=== PATIENT | female | born 1960 | race Asian ===

== ENCOUNTER → 2024-10-16 | Emergency (ER) | payer OTHER ==
[~2024-10-16] VITALS: Ht 170.2 cm; Wt 81.6 kg
[~2024-10-16] MED LIST: MECL-159 PO; PROCHLORPERAZINE EDISYLATE 10 MG/2 ML VIAL ONE
[2024-10-16 20:11] LABS: BASOPHILS % (AUTO) 0.7 % (0.0-2.0); EOSINOPHILS # (AUTO) 0.3 K/uL (0.0-0.7); EOSINOPHILS % (AUTO) 4.2 % (0.0-7.0); HEMATOCRIT 45.9 % (31.2-41.9); LYMPHOCYTES # (AUTO) 1.9 K/uL (0.8-4.8); LYMPHOCYTES % (AUTO) 29.7 % (20.5-51.5); MEAN CORPUSCULAR HEMOGLOBIN 27.6 uug (24.7-32.8); MEAN CORPUSCULAR HGB CONC 33 g/dL (32.3-35.6); MEAN CORPUSCULAR VOLUME 84.7 fL (75.5-95.3); MONOCYTES # (AUTO) 0.4 K/uL (0.1-1.30); MONOCYTES % (AUTO) 6.2 % (0.0-11.0); NEUTROPHILS # (AUTO) 3.8 K/uL (1.8-8.9); NEUTROPHILS % (AUTO) 59.2 % (38.5-71.5); PLATELET COUNT (AUTO) 390 K/uL (179-408); RED BLOOD CELL COUNT(AUTO) 5.42 MIL/uL (3.63-4.92); RED CELL DISTRIBUTION WIDTH 13.5 % (12.3-17.7); WHITE BLOOD COUNT (AUTO) 6.4 K/uL (3.8-11.8)
[2024-10-16 20:27] LABS: DIFFERENTIAL COMMENT 1
[2024-10-16 20:31] LABS: CALCIUM 9.1 mg/dL (8.5-10.1); CARBON DIOXIDE 29 mmol/L (21-32); CHLORIDE 102 mmol/L (98-107); GLUCOSE 367 mg/dL (74-106); POTASSIUM 3.8 mmol/L (3.5-5.1); SODIUM SERUM 139 mmol/L (136-145); UREA NITROGEN, BLOOD 16 mg/dL (7-18)
[2024-10-16] MEDS: IV NORMAL SALINE 1000 ML BAG IV ONE (21:15)
[2024-10-16] MEDS: PROCHLORPERAZINE EDISYLATE 10 MG/2 ML VIAL IM ONE (21:30)
[2024-10-16 21:42] LABS: ALBUMIN 3.7 g/dL (3.4-5.0); BILIRUBIN,DIRECT 0.1 mg/dL (0.0-0.2); BILIRUBIN,TOTAL 0.3 mg/dL (0.2-1.0)
[2024-10-16] MEDS: MECLIZINE HCL 25 MG TABLET PO ONE (22:58)
[2024-10-16 23:47] VITALS: BP 134/89; TEMP 98.4; O2SAT 98
== END | disposition home or self-care (01) ==
LOC: ER 19:25
DX: R42 Dizziness and giddiness (principal); R10.9 Unspecified abdominal pain; R51.9 Headache, unspecified; E11.9 Type 2 diabetes mellitus without complications
CPT/HCPCS: 99285; 96360; 70450; 80076; 80048; 82962 ×2; 85025; 84484 ×2; 36415; 93005; 96372; J0780; J7040 ×2; A4606; A4663